=== PATIENT | female | born 2000 | race Caucasian/White ===

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

== ENCOUNTER 2022-03-19 10:57 | Emergency (ER) | payer OTHER ==
[~2022-03-19 10:57] MED LIST: CLARITIN10 MG PO; IBUPROFEN800 MG PO; NAPROXEN500 MG PO; ZOLOFT50 MG PO; birth control
[2022-03-19] MEDS ORDERED: NAPROXEN500 MG PO (13:04)
== END 2022-03-19 13:08 | disposition home or self-care (01) ==
LOC: FER 10:57
DX: S40.012A Contusion of left shoulder, initial encounter (principal); V47.5XXA Car driver injured in collision with fixed or stationary object in traffic accident, initial encounter
CPT/HCPCS: 73000; 73030